=== PATIENT | male | born 1970 | race Caucasian/White ===

== ENCOUNTER 2017-03-30 10:06 | Emergency (ER) | payer BC | END 2017-03-30 11:25 | disposition left against medical advice (07) | LOC: UCEAST 10:06 | DX: R05 Cough (principal); M79.1 Myalgia; Z53.21 Procedure and treatment not carried out due to patient leaving prior to being seen by health care provider ==

== ENCOUNTER 2018-04-29 07:32 | Emergency (ER) | payer BC, OTHER ==
[2018-04-29 07:44] VITALS: BP 138/89
[2018-04-29] MEDS ORDERED: Fluorescein Sodium TOPICAL* 1 MG TEST STRIP OPHTHALMIC ONE (07:48)
[2018-04-29] MEDS ORDERED: Tetracaine 0.5% OPTH.SOL 4 ML* 1 DROP BTL ONE (07:49)
--- NOTE | 2018-04-29 07:50 | UC ---
General HPI - HPI Summary HPI Summary: 47 yo gentleman walked through his house last evening, felt something go into his eye. Put visine is his eyes, helped a little but woke up in the middle of the night d/t pain. Vision ok. No fever /chills. + sniffles. - History of Current Complaint Chief Complaint: UCEye Stated Complaint: FB IN EYE Time Seen by Provider: 04/29/18 07:44 Hx Obtained From: Patient Pain Intensity: 2 - Allergy/Home Medications Allergies/Adverse Reactions: Allergies Allergy/AdvReac Type Severity Reaction Status Date / Time No Known Allergies Allergy Verified 04/29/18 07:44 Home Medications: Home Medications Peg 400/Hypromellose/Glycerin [Visine Dry Eye Relief Drop] 1 drop OPHTHALMIC ONCE PRN 04/29/18 [History Confirmed 04/29/18] PMH/Surg Hx/FS Hx/Imm Hx Previously Healthy: Yes - Surgical History Surgical History: Yes Surgery Procedure, Year, and Place: right hand surgery to repair fx - Social History Alcohol Use: Occasionally Substance Use Type: None Smoking Status (MU): Never Smoked Tobacco Review of Systems All Other Systems Reviewed And Are Negative: Yes Constitutional: Positive: Other - see hpi Skin: Positive: Other Eyes: Positive: Other ENT: Positive: Other Respiratory: Positive: Other Cardiovascular: Positive: Other Gastrointestinal: Positive: Other Motor: Positive: Other Neurovascular: Positive: Other Musculoskeletal: Positive: Other: Neurological: Positive: Other Psychological: Positive: Negative Is Patient Immunocompromised?: No Physical Exam Triage Information Reviewed: Yes Appearance: Well-Appearing, Well-Nourished Vital Signs: Initial Vital Signs Temp 97.5 F 04/29/18 07:40 Pulse 93 04/29/18 07:40 Resp 18 04/29/18 07:40 BP 138/89 04/29/18 07:40 Pulse Ox 96 04/29/18 07:40 Vital Signs Reviewed: Yes Eye Exam: Other - PERRLA EOMI no nystag. sclera injected OS. Mild upper lid swelling. No gross f/b to direct inspection. Mild photophobia, not a lot. Flur gtt - u/v light with minimal uptake. Lids flipped. However, my suspicion for FB is high. ENT Exam: Normal Neck exam: Normal - grossly normal Respiratory Exam: Normal - grossly normal Cardiovascular Exam: Normal - grossly normal Abdominal Exam: Normal - grossly normal Musculoskeletal Exam: Normal - grossly normal gait steady Neurological Exam: Normal - grosssly nonfocal perrla eomi no nystag + lt sens present Psychological Exam: Normal - conversing easily Skin Exam: Normal - no visible or reported rash Course/Dx - Course Course Of Treatment: My susp for FB or abrasion etc is high. Wood's light not available this am, u/v light is equivocal. D/w [facility]. they will kindly seek Mr. Mcfarlane this morning. D/w Mr. Mcfarlane, he expresses understanding and agreement. see avs. S/sx c/w corneal abrasion, suspect undx'd fb. Boostrix given last tet > 10 yrs ago. - Diagnoses Provider Diagnosis: Corneal abrasion Discharge - Sign-Out/Discharge Documenting (check all that apply): Patient Departure All imaging exams completed and their final reports reviewed: No Studies - Discharge Plan Condition: Stable Disposition: HOME Patient Education Materials: Diphtheria/Acellular Pertussis/Tetanus Booster Vaccine (By injection), Eye Foreign Body (ED) Referrals: No Primary Care Phys,NOPCP [Primary Care Provider] - Jose Alejandro Medina MD [Medical Doctor] - [facility] [place] [facility]FERR[facility] [Outside] Additional Instructions: Follow up with a primary care physician when you are able, if possible in the next 4 weeks. [BP today was 139/89. Go to [facility]. Your appointment is scheduled at 10:45. But they said you can go over now. - Billing Disposition and Condition Condition: STABLE Disposition: Home
[2018-04-29] MEDS ORDERED: Tetan/Diph/Pertus SYR(Tdap)* 0.5 ML SYR(BOOSTRIX) use SYR IM ONE (08:14)
[2018-04-29] MEDS ORDERED: Ciprofloxacin 0.3% OPTH.SOL* 2.5 ML BTL LEFT EYE ONE (08:17)
== END 2018-04-29 08:25 | disposition home or self-care (01) ==
LOC: UCEAST 07:32
DX: S05.02XA Injury of conjunctiva and corneal abrasion without foreign body, left eye, initial encounter (principal); X58.XXXA Exposure to other specified factors, initial encounter; Y92.009 Unspecified place in unspecified non-institutional (private) residence as the place of occurrence of the external cause; Z23 Encounter for immunization
CPT/HCPCS: 90715; 99212; A9270-GY; G0463

== ENCOUNTER 2019-02-19 11:48 | Emergency (ER) | payer OTHER | END 2019-02-19 12:26 | disposition left against medical advice (07) | LOC: UCEAST 11:48 | DX: Z53.21 Procedure and treatment not carried out due to patient leaving prior to being seen by health care provider (principal) ==

== ENCOUNTER 2019-02-19 12:42 | Emergency (ER) | payer OTHER ==
--- NOTE | 2019-02-19 14:29 | ED ---
Abdominal Pain/Male - HPI Summary HPI Summary: Patient is a 48 y/o M presenting to [facility] with complaints of lower abdominal pain that has been present for the past 2.5 days. Pain waxes and wanes in intensity, patient states that it is currently not as sharp as it has been previously. He notes that he has been constipated for the past few days as well. Patient drank prune juice and took a laxative this morning, which relieved his constipation. No abdominal masses or lumps are noted. He denies flank pain, groin pain, vomiting, fever, dysuria and blood in stool. Some nausea and COFFMAN are endorsed. He denies Hx of HTN, diabetes, cardiac disease, kidney stones, ulcerative colitis. Most recent meal was last night. Home medications and allergies are reviewed. - History of Current Complaint Chief Complaint: Lanette Stated Complaint: ABD PAIN FROM CC Time Seen by Provider: 02/19/19 14:19 Hx Obtained From: Patient Onset/Duration: Lasting Days, Still Present - abdominal pain, Resolved - constipation Timing: Lasting Days Pain Intensity: 0 Pain Scale Used: 0-10 Numeric Location: Other - lower abdomen Associated Signs And Symptoms: Positive: Constipation - since resolved, Nausea, Other - negative - flank pain, groin pain; positive - COFFMAN. Negative: Fever, Blood in Stool, Urinary Symptoms, Vomiting - Allergies/Home Medications Allergies/Adverse Reactions: Allergies Allergy/AdvReac Type Severity Reaction Status Date / Time No Known Allergies Allergy Verified 02/19/19 12:48 PMH/Surg Hx/FS Hx/Imm Hx Endocrine/Hematology History: Denies: Hx Diabetes, Hx Thyroid Disease Cardiovascular History: Denies: Hx Hypertension, Hx Pacemaker/ICD Respiratory History: Denies: Hx Asthma, Hx Chronic Obstructive Pulmonary Disease (COPD) GI History: Denies: Hx Ulcer History: Denies: Hx Renal Disease Sensory History: Denies: Hx Hearing Aid Psychiatric History: Denies: Hx Panic Disorder - Surgical History Surgery Procedure, Year, and Place: right hand surgery to repair fx Infectious Disease History: No Infectious Disease History: Denies: Hx Clostridium Difficile, Hx Hepatitis, Hx Human Immunodeficiency Virus (HIV), Hx of Known/Suspected MRSA, Hx Shingles, Hx Tuberculosis, Traveled Outside the [place] in Last 30 Days - Family History Known Family History: Positive: Hypertension - Social History Alcohol Use: Occasionally Substance Use Type: Reports: None Smoking Status (MU): Never Smoked Tobacco Review of Systems Negative: Fever Gastrointestinal: Other - positive - since resolved constipation; negative - blood in stool, abdominal lumps or masses Positive: Abdominal Pain, Nausea. Negative: Vomiting Genitourinary: Other - negative - groin pain Negative: dysuria, flank pain Positive: Headache All Other Systems Reviewed And Are Negative: Yes Physical Exam - Summary Physical Exam Summary: Constitutional: Well-developed, Well-nourished, Alert. (-) Distressed Skin: Warm, Dry HENT: Normocephalic; Atraumatic Eyes: Conjunctiva normal Neck: Musculoskeletal ROM normal neck. (-) JVD, (-) Stridor, (-) Tracheal deviation Cardio: Rhythm regular, rate normal, Heart sounds normal; Intact distal pulses; The pedal pulses are 2+ and symmetric. Radial pulses are 2+ and symmetric. (-) Murmur Pulmonary/Chest wall: Effort normal. (-) Respiratory distress, (-) Wheezes, (-) Rales Abd: Soft, (+) RLQ and suprapubic tenderness (-) Distension, (-) Guarding, (-) Rebound Musculoskeletal: (-) Edema Lymph: (-) Cervical adenopathy Neuro: Alert, Oriented x3 Psych: Mood and affect Normal Triage Information Reviewed: Yes Vital Signs On Initial Exam: Initial Vitals Temp Pulse Resp BP Pulse Ox 97.3 F 88 14 129/87 97 02/19/19 12:44 02/19/19 12:44 02/19/19 12:44 02/19/19 12:44 02/19/19 12:44 Vital Signs Reviewed: Yes Procedures - Sedation Patient Received Moderate/Deep Sedation with Procedure: No Diagnostics - Vital Signs Vital Signs Temp Pulse Resp BP Pulse Ox 02/19/19 12:44 97.3 F 88 14 129/87 97 - Laboratory Result Diagrams: 02/18/19 14:57 02/18/19 14:57 Lab Statement: Any lab studies that have been ordered have been reviewed, and results considered in the medical decision making process. - CT CT ABD/PEL CT Interpretation Completed By: Radiologist Summary of CT Findings: IMPRESSION: 1. THICKENING OF THE WALL OF THE PROXIMAL AND MID SIGMOID COLON MOST CONSISTENT WITH. COLITIS. RECOMMEND A FOLLOW-UP COLONOSCOPY ONCE THE PATIENT'S SYMPTOMS RESOLVED. 2. HEPATIC STEATOSIS. 3. SMALL PERIUMBILICAL HERNIA CONTAINING FAT. THIS REPORT WAS REVIEWED BY ED PHYSICIAN. Re-Evaluation - Re-Evaluation First Eval Re-Evaluation Time: 17:58 Comment: Results of workup were discussed, patient will be discharged to home. Abdominal Pain Male Course/Dx - Course Course Of Treatment: Patient is a 48 y/o M presenting to [facility] with complaints of lower abdominal pain that has been present for the past 2.5 days. Pain waxes and wanes in intensity, patient states that it is currently not as sharp as it has been previously. He notes that he has been constipated for the past few days as well. Patient drank prune juice and took a laxative this morning, which relieved his constipation. No abdominal masses or lumps are noted. He denies flank pain, groin pain, vomiting, fever, dysuria and blood in stool. Some nausea and COFFMAN are endorsed. He denies Hx of HTN, diabetes, cardiac disease, kidney stones, ulcerative colitis. On physical exam, RLQ and suprapubic tenderness is noted. Bloodwork was obtained and showed WBC 11.7, MPV 6.9, absolute neuts 9.8, glucose 103. Otherwise was within normal limits. During ED course, patient received fluids. CT ABD/PEL IMPRESSION: 1. THICKENING OF THE WALL OF THE PROXIMAL AND MID SIGMOID COLON MOST CONSISTENT WITH. COLITIS. RECOMMEND A FOLLOW-UP COLONOSCOPY ONCE THE PATIENT'S SYMPTOMS RESOLVED. 2. HEPATIC STEATOSIS. 3. SMALL PERIUMBILICAL HERNIA CONTAINING FAT. Results of workup were discussed with the patient. Patient was given Cipro 500 mg and Flagyl 500 mg in ED and discharged to home with prescriptions for these two antibiotics. He will follow up with PCP. - Diagnoses Provider Diagnoses: Colitis Discharge ED - Sign-Out/Discharge Documenting (check all that apply): Patient Departure - discharge - Discharge Plan Condition: Stable Disposition: HOME Prescriptions: Ciprofloxacin TAB* [Cipro 500 MG TAB*] 500 mg PO BID #14 tab metroNIDAZOLE [Flagyl 500 MG TAB] 500 mg PO TID #21 tab Patient Education Materials: Colitis (ED) Referrals: [facility] [Outside] - 3 Days Additional Instructions: PLEASE RETURN TO ED FOR ANY NEW OR WORSENING SYMPTOMS. PLEASE FOLLOW UP WITH YOUR PRIMARY CARE PHYSICIAN WITHIN THREE DAYS. - Attestation Statements Document Initiated by Luke: Yes Documenting Scribe: SUZE RM Provider For Whom Scribe is Documenting (Include Credential): WANDA JESUS DO Scribe Attestation: ISUZE, scribed for WANDA JESUS DO on 02/19/19 at 1812. Status of Scribe Document: Ready
[2019-02-19] MEDS: NS 0.9% 1000 ML** 1,000 ML IV ONE (14:47)
[2019-02-19 15:25] LABS: ABS Eosinophils 0.1 10^3/ul (0-0.6); ABS Lymphocytes 1.3 10^3/ul (1.0-4.8); ABS Monocytes 0.5 10^3/ul (0-0.8); ABS Neutrophils 9.8 10^3/ul (1.5-7.7); Eosinophil % 0.8 %; Hematocrit 44 % (42-52); Lymphocyte % 10.9 %; Mean Corpuscular HGB Conc 34 g/dL (31-36); Mean Corpuscular Hemoglobin 31 pg (27-31); Mean Corpuscular Volume 93 fL (80-94); Mean Platelet Volume 6.9 fL (7.4-10.4); Nucleated Red Blood Cells % 0.1; Platelet Count 356 10^3/uL (150-450); Red Cell Distribution Width 13 % (10-15); White Blood Count 11.7 10^3/uL (3.5-10.8)
[2019-02-19 15:43] LABS: Albumin 4.5 g/dL (3.2-5.2); Albumin/Globulin Ratio 1.6 (1-3); BUN/Creatinine Ratio 18.5 (8-20); Calcium 8.9 mg/dL (8.6-10.3); EGFR African American 105.4 (>60); EGFR Non-African American 87.1 (>60); Globulin 2.9 g/dL (2-4); Potassium 4.2 mmol/L (3.5-5.0); Total Bilirubin 0.7 mg/dL (0.2-1.0); Total Protein 7.4 g/dL (6.4-8.9)
[2019-02-19] MEDS: Iohexol 300* (CONTRAST) 10 ML SDV IV ONE (16:55)
[2019-02-19] MEDS: Ciprofloxacin TAB* 250 MG PO ONE (18:14)
[2019-02-19] MEDS: metroNIDAZOLE TAB* 250 MG PO SCH (18:14)
[2019-02-19 18:26] VITALS: BP 130/84
[2019-02-19] MEDS ORDERED: metroNIDAZOLE * 500 MG TABLET PO SCH (19:00)
== END 2019-02-19 18:20 | disposition home or self-care (01) ==
LOC: ED 12:42
DX: K52.9 Noninfective gastroenteritis and colitis, unspecified (principal); K76.0 Fatty (change of) liver, not elsewhere classified; K42.9 Umbilical hernia without obstruction or gangrene
CPT/HCPCS: 36415; 74177; 80053; 85025; 96360; 99283; A9270-GY; Q9967